=== PATIENT | male | born 1970 | race African-American/Black ===

== ENCOUNTER 2018-06-27 12:51 | Inpatient (IN) ==
[2018-06-27] MEDS ORDERED: Heparin 10,000 UNITS/10 ML Vial (for IV use) IV.PUSH STA (14:12)
[2018-06-27] MEDS ORDERED: Heparin Drip 25,000 UNIT/250 ML BAG IV.CONT PRN (14:12)
--- NOTE | 2018-06-27 14:15 | XR ---
EXAM DATE: 06/27/2018 1:58 PM EDT AGE/SEX: 48 years / Male INDICATIONS: . Chest pain and shortness of breath. CLINICAL DATA: This is the patient's initial encounter. Patient reports that signs and symptoms have been present for 3 days and indicates a pain score of 3/10. MEDICAL/SURGICAL HISTORY: Hypertension. None. COMPARISON: No prior exams available for comparison. FINDINGS: AP and lateral views of the chest demonstrate moderate cardiomegaly. No pulmonary vascular engorgemen t. Linear atelectasis versus scarring within the bases. Blunting of the costophrenic angles bilateral ly. No infiltrates. CONCLUSION: 1. Cardiomegaly. 2. Blunting of the costophrenic angles bilaterally either relating to tiny effusions or scarring. 3. Linear atelectasis versus scarring within the bases. Electronically signed by: Zen Beth MD 06/27/2018 2:13 PM EDT
[2018-06-27 14:38] LABS: Baso # (Auto) 0.1 th/mm3 (0.0-0.2); Baso % (Auto) 0.9 % (0.0-2.0); Eos % (Auto) 0.1 % (0.0-4.0); Hematocrit 29.4 % (39.0-51.0); Hemoglobin 9.7 gm/dL (13.0-17.0); Lymph # (Auto) 1.5 th/mm3 (1.0-4.8); Lymph % (Auto) 9.2 % (9.0-44.0); Mean Corpuscular HGB Conc 32.9 % (32.0-36.0); Mean Platelet Volume 9.8 fL (7.0-11.0); Mono # (Auto) 1.3 th/mm3 (0.0-0.9); Mono % (Auto) 7.8 % (0.0-8.0); Neut # (Auto) 13.6 th/mm3 (1.8-7.7); Platelet Count 217 th/mm3 (150-450); Red Blood Count 3.24 mil/mm3 (4.50-5.90); Red Cell Distribution Width 14.5 % (11.6-17.2); White Blood Count 16.6 th/mm3 (4.0-11.0)
[2018-06-27 14:51] LABS: Activated Partial Thrombo Time 33.4 sec (24.3-30.1); INR 1.1 Ratio
--- NOTE | 2018-06-27 14:52 | ED ---
HPI General Chief Complaint: Chest Pain Stated Complaint: Chest pain/SOB Time Seen by Provider: 06/27/18 13:57 Source: patient Mode of arrival: ambulatory Limitations: no limitations History of Present Illness HPI narrative: 48-year-old male patient with history of hypertension presents to the ER today for 3 days history of substernal chest pains which she states feels like a pressure, currently a 3 out of 10, with nausea and mild shortness of breath. He denies any vomiting, coughing, fevers, or any other symptoms. He does not know of any exacerbating alleviating factors. He has not had chest pains like this in the past. Complete Quality Measures for STEMI Alert Patients Related Data Home Medications Medication Instructions Recorded Confirmed amlodipine 10 mg PO HS 06/27/18 06/27/18 calcium acetate 667 mg PO TID 06/27/18 06/27/18 carvedilol 25 mg PO BID 06/27/18 06/27/18 doxazosin 2 mg PO DAILY 06/27/18 06/27/18 losartan 100 mg PO DAILY 06/27/18 06/27/18 torsemide 20 mg PO DAILY 06/27/18 06/27/18 Allergies Allergy/AdvReac Type Severity Reaction Status Date / Time No Known Allergies Allergy Unverified 06/27/18 13:24 Review of Systems Except as stated in HPI: all other systems reviewed are negative [facility] Social History Social History Substance History: No History of Abuse Second Hand Smoke Exposure: Yes Smoking Status: Current every day smoker Tobacco Type: Cigarettes How Often Do You Have a Drink Containing Alcohol: Never Recent Travel in [facility] within the Last 8 Weeks: No Recent Out of Country Travel within the Last 8 Weeks: No Immunization History Tetanus Immunization: <5 Years Hx Influenza Vaccine This Season: Yes Exam Narrative Exam Narrative: GENERAL: Well-developed middle-age -[place] male patient currently in mild distress. Awake and oriented 3. SKIN: Focused skin assessment warm/dry. HEAD: Atraumatic. Normocephalic. EYES: Pupils equal and round. No scleral icterus. No injection or drainage. ENT: No nasal bleeding or discharge. Mucous membranes pink and moist. NECK: Trachea midline. No JVD. Supple. CARDIOVASCULAR: Regular rate and rhythm. No murmur appreciated. Pulses are present and equal bilaterally. RESPIRATORY: No accessory muscle use. Clear to auscultation. Breath sounds equal bilaterally. GASTROINTESTINAL: Abdomen soft, non-tender, nondistended. Hepatic and splenic margins not palpable. MUSCULOSKELETAL: No obvious deformities. No clubbing. No cyanosis. No edema. NEUROLOGICAL: Awake and alert. No obvious cranial nerve deficits. Motor grossly within normal limits. Normal speech. PSYCHIATRIC: Appropriate mood and affect; insight and judgment normal. Course Initial Documented Vital Signs Temperature 99.5 F 06/27/18 13:22 Pulse Rate 79 06/27/18 13:22 Respiratory Rate 17 06/27/18 13:22 Blood Pressure 168/112 H 06/27/18 13:22 Pulse Oximetry 99 06/27/18 13:22 Last Documented Vital Signs Temperature 99.5 F 06/27/18 13:22 Pulse Rate 67 06/27/18 14:30 Respiratory Rate 18 06/27/18 14:30 Blood Pressure 186/124 H 06/27/18 14:30 Pulse Oximetry 99 06/27/18 14:30 Medical Decision Making MDM Narrative Medical decision making narrative: Due to the EKG abnormalities seen, case was discussed with Dr. Sierra when patient initially came into [facility] room 29, and he states that the EKG changes are equivocal, does not quite make STEMI criteria at this time. He has suggested further chest pain workup and will likely do further catheterization on the patient in the morning. He did suggest heparin at this time as well. However, when patient's lab work returns, his troponin is fairly elevated. He would not make a good Candidate at this point I do not think. However, Dr. Sierra's PA to see the patient in the ER, I have relayed the findings to her as well. Troponin is mildly elevated 0.11. At this point, this will need to be followed out, case has been discussed with Dr. Patel for admission. Differential Diagnosis Differential Diagnosis: ACS versus STEMI versus dysrhythmias versus costochondritis Lab Data Lab results reviewed: Yes I reviewed the patient's lab results. Result diagrams: 06/27/18 14:10 06/27/18 14:10 Lab Results 06/27/18 06/27/18 06/27/18 Range/Units 14:10 14:10 14:10 WBC 16.6 H (4.0-11.0) th/mm3 RBC 3.24 L (4.50-5.90) mil/mm3 Hgb 9.7 L (13.0-17.0) gm/dL Hct 29.4 L (39.0-51.0) % MCV 91.0 (80.0-100.0) fL MCH 30.0 (27.0-34.0) pg MCHC 32.9 (32.0-36.0) % RDW 14.5 (11.6-17.2) % Plt Count 217 (150-450) th/mm3 MPV 9.8 (7.0-11.0) fL Neut % (Auto) 82.0 H (16.0-70.0) % Lymph % (Auto) 9.2 (9.0-44.0) % [place] % (Auto) 7.8 (0.0-8.0) % Eos % (Auto) 0.1 (0.0-4.0) % Baso % (Auto) 0.9 (0.0-2.0) % Neut # (Auto) 13.6 H (1.8-7.7) th/mm3 Lymph # (Auto) 1.5 (1.0-4.8) th/mm3 [place] # (Auto) 1.3 H (0.0-0.9) th/mm3 Eos # (Auto) 0.0 (0.0-0.4) th/mm3 Baso # (Auto) 0.1 (0.0-0.2) th/mm3 WBC Differential . Differential Comment Auto diff final PT 11.0 (9.8-11.6) sec INR 1.1 Ratio APTT 33.4 H (24.3-30.1) sec Sodium 135 L (136-145) meq/L Potassium 4.7 (3.5-5.1) meq/L Chloride 105 (98-107) meq/L Carbon Dioxide 15.4 L (21.0-32.0) meq/L Anion Gap 15 (5-15) meq/L BUN 102 H (7-18) mg/dL Creatinine 17.56 H* (0.60-1.30) mg/dL Estimated GFR 4 L (>89) mL/min Random Glucose 109 H (74-106) mg/dL Calcium 7.1 L* (8.5-10.1) mg/dL Prot Corrected Calcium 7.4 L* (8.5-10.1) mg/dL Troponin I 0.11 H (0.02-0.05) ng/mL Total Protein 6.6 (6.4-8.2) g/dL Imaging Data Attestation: I personally reviewed and interpreted this imaging study as follows : Radiologist's impression: Chest X-Ray 06/27/18 00:00 CONCLUSION: 1. Cardiomegaly. 2. Blunting of the costophrenic angles bilaterally either relating to tiny effusions or scarring. 3. Linear atelectasis versus scarring within the bases. ECG Data Attestation: I personally reviewed and interpreted this ECG as follows: Interpretation: EKG shows normal sinus rhythm at a rate of 76 bpm. There is a nonspecific ST abnormality, subcentimeter questionable elevation in the inferior leads with T-wave inversions in 1, aVL, and V5 and V6. Discharge Plan Discharge Disposition Patient Disposition: 30 Still Patient Discharge Condition Condition: Fair Discharge Details Anticipated Discharge Date: 06/27/18 Diagnosis: Atypical chest pain, Acute renal failure (ARF), Elevated troponin Physicians Team ED Provider: James Mcgregor Primary Care Provider: Primary Care PramodiSultana Rxs /Orders / Referrals /Forms Prescriptions: No Action carvedilol 25 mg Tablet 25 mg PO BID RF: 0 torsemide 20 mg Tablet 20 mg PO DAILY RF: 0 amlodipine 10 mg Tablet 10 mg PO HS RF: 0 losartan 100 mg Tablet 100 mg PO DAILY RF: 0 doxazosin 2 mg Tablet 2 mg PO DAILY RF: 0 calcium acetate 667 mg Capsule 667 mg PO TID RF: 0 Discharge Instructions Patient Printed Instructions: Chest Pain (ED) Status ED Status: With Doctor
[2018-06-27 15:08] LABS: Calcium 7.1 mg/dL (8.5-10.1); Carbon Dioxide 15.4 meq/L (21.0-32.0); Potassium 4.7 meq/L (3.5-5.1); Troponin I 0.11 ng/mL (0.02-0.05)
[2018-06-27 15:36] LABS: Total Protein 6.6 g/dL (6.4-8.2)
--- NOTE | 2018-06-27 15:44 | P.CONCA ---
<Pattie Muñoz - Last Filed: 06/27/18 15:47> History of Present Illness Service: cardiology Consult date: 06/27/18 Reason for Consult: chest pain Primary Care Provider: No Primary Care Physician Chief Complaint: chest pain History of Present Illness: 48 yo AAM with no prior cardiac history and CKD followed by cyber systems operations specialist in [place] who recently relocated to [place] presents with 2 days of chest pain. Patient states 2 days ago he awoke with "6/10" substernal chest pain made worse with deep breaths and laying supine. His was en route from [place] and he wanted to wait until she came home before going to the ED. Today he presents with "3/10" pain, he admits to mild nausea yesterday. No sob or palpitations. Troponin x 1 is 0.1, creatinine is 17. Review of Systems All other systems reviewed negative except as stated in HPI PMFSH - History History Provided By: Patient - Tobacco History Second Hand Smoke Exposure: Yes Tobacco Use In Past 30 Days: Yes Smoking Status: Current every day smoker Tobacco Type: Cigarettes - Alcohol History How Often Do You Have a Drink Containing Alcohol: Never - Substance Use History Substance History: No History of Abuse - Travel History Recent Travel in the [place] Within the Last 8 Weeks: No Recent Travel Out of the Country Within the Last 8 Weeks: No - Immunization History Tetanus Immunization: <5 Years Hx Influenza Vaccine This Season: Yes Medications and Allergies Allergies Allergy/AdvReac Type Severity Reaction Status Date / Time No Known Allergies Allergy Unverified 06/27/18 13:24 Home Medications Medication Instructions Recorded Confirmed Type amlodipine 10 mg PO HS 06/27/18 06/27/18 History calcium acetate 667 mg PO TID 06/27/18 06/27/18 History carvedilol 25 mg PO BID 06/27/18 06/27/18 History doxazosin 2 mg PO DAILY 06/27/18 06/27/18 History losartan 100 mg PO DAILY 06/27/18 06/27/18 History torsemide 20 mg PO DAILY 06/27/18 06/27/18 History Active Medications: Active Medications Heparin Sodium/Dextrose (Heparin/D5w 25,000 U/250 Ml) 25,000 unit in 250 mls @ 0 mls/hr IV.CONT TITRATE PRN; Protocol PRN Reason: Per Protocol Last Admin: 06/27/18 15:12 Dose: 900 units/hr, 9 mls/hr Sodium Chloride (Ns Flush) 2 ml IV.FLUSH UNSCH PRN PRN Reason: FLUSH AFTER USING IV ACCESS Last Admin: 06/27/18 15:13 Dose: 2 ml Exam Vital signs: Vital Signs 06/27/18 13:22 06/27/18 14:30 Temperature 99.5 F Pulse Rate 79 67 Respiratory Rate 17 18 Blood Pressure 168/112 H 186/124 H Pulse Oximetry 99 99 Intake & Output 06/26/18 06/27/18 06/27/18 18:59 06:59 18:59 Weight 72.575 kg Narrative: GENERAL: SKIN: Warm and dry. HEAD: Normocephalic. EYES: No scleral icterus. No injection or drainage. NECK: Supple, trachea midline. No JVD or lymphadenopathy. CARDIOVASCULAR: Regular rate and rhythm without murmurs, gallops, or rubs. RESPIRATORY: Breath sounds equal bilaterally. No accessory muscle use. GASTROINTESTINAL: Abdomen soft, non-tender, nondistended. MUSCULOSKELETAL: No cyanosis, or edema. Results 06/27/18 14:10 06/27/18 14:10 Cardiac Enzymes 06/27/18 Range/Units 14:10 Troponin I 0.11 H (0.02-0.05) ng/mL Coagulation 06/27/18 Range/Units 14:10 PT 11.0 (9.8-11.6) sec APTT 33.4 H (24.3-30.1) sec CBC 06/27/18 Range/Units 14:10 WBC 16.6 H (4.0-11.0) th/mm3 RBC 3.24 L (4.50-5.90) mil/mm3 Hgb 9.7 L (13.0-17.0) gm/dL Hct 29.4 L (39.0-51.0) % Plt Count 217 (150-450) th/mm3 Neut # (Auto) 13.6 H (1.8-7.7) th/mm3 Lymph # (Auto) 1.5 (1.0-4.8) th/mm3 [place] # (Auto) 1.3 H (0.0-0.9) th/mm3 Eos # (Auto) 0.0 (0.0-0.4) th/mm3 Baso # (Auto) 0.1 (0.0-0.2) th/mm3 Comprehensive Metabolic Panel 06/27/18 Range/Units 14:10 Sodium 135 L (136-145) meq/L Potassium 4.7 (3.5-5.1) meq/L Chloride 105 (98-107) meq/L Carbon Dioxide 15.4 L (21.0-32.0) meq/L BUN 102 H (7-18) mg/dL Creatinine 17.56 H* (0.60-1.30) mg/dL Calcium 7.1 L* (8.5-10.1) mg/dL Intake and Output 06/27/18 06/27/18 06/27/18 06:59 14:59 22:59 Other: Weight 72.575 kg Patient Weight 06/28/18 06:59 Weight 72.575 kg Assessment and Plan - Plan 48 yo AAM with no prior cardiac history and CKD who recently relocated to [place] presents with 2 days of chest pain. Patient states 2 days ago he awoke with "6/10" substernal chest pain made worse with deep breaths and laying supine. His was en route from [place] and he wanted to wait until she came home before going to the ED. Today he presents with "3/10" pain, he admits to mild nausea yesterday. No sob or palpitations. NSTEMI- troponin x 1 is 0.1, continue to monitor trend EKG shows possible baseline ST elevation? chest pain "3/10", improving acute on chronic kidney disease- creatinine 17 follows with nephrology in [place]. <Caleb Sierra - Last Filed: 06/27/18 16:46> History of Present Illness Primary Care Provider: No Primary Care Physician Medications and Allergies Active Medications: Active Medications Acetaminophen (Tylenol) 650 mg PO Q4H PRN PRN Reason: Temp > 100.4 Al Hydroxide/Mg Hydroxide (Milk Of Magnesia Liq) 30 ml PO Q12H PRN PRN Reason: Mild Constipation Amlodipine Besylate (Norvasc) 10 mg PO HS GLO Aspirin (Aspirin) 325 mg PO DAILY GLO Bisacodyl (Dulcolax Supp) 10 mg RECTAL DAILY PRN PRN Reason: SEVERE CONSITIPATION Calcium Acetate (Phoslo) 667 mg PO TID GLO Clonidine HCl (Catapres) 0.1 mg PO Q6H PRN PRN Reason: HYPERTENSION Doxazosin Mesylate (Cardura) 2 mg PO DAILY [facility] Hydralazine HCl (Apresoline) 50 mg PO TID [facility] Heparin Sodium/Dextrose (Heparin/D5w 25,000 U/250 Ml) 25,000 unit in 250 mls @ 0 mls/hr IV.CONT TITRATE PRN; Protocol PRN Reason: Per Protocol Last Admin: 06/27/18 15:12 Dose: 900 units/hr, 9 mls/hr Sodium Chloride (Ns Inj) 1,000 mls @ 100 mls/hr IV.CONT .Q10H [facility] Lactulose (Lactulose Liq) 30 ml PO DAILY PRN PRN Reason: SEVERE CONSITIPATION Morphine Sulfate (Morphine Inj) 4 mg IV.PUSH Q3H PRN PRN Reason: PAIN 6-10;IF UNABLE TO TAKE PO Morphine Sulfate (Morphine Inj) 4 mg IV.PUSH Q3H PRN PRN Reason: BREAKTHROUGH PAIN Morphine Sulfate (Morphine Inj) 2 mg IV.PUSH Q3H PRN PRN Reason: PAIN 3-5; IF UABLE TO TAKE PO Naloxone HCl (Narcan Inj) 0.4 mg IV.PUSH UNSCH PRN PRN Reason: SEE LABEL COMMENTS Nitroglycerin (Nitro-Bid 2% Oint) 1 inch TOPICAL Q6HR [facility] Nitroglycerin (Nitrostat Sl) 0.4 mg SL Q5M PRN PRN Reason: CHEST PAIN Non-Formulary Medication (Carvedilol [Carvedilol]) 25 mg PO BID [facility] Ondansetron HCl (Zofran Inj) 4 mg IV.PUSH Q6H PRN PRN Reason: NAUSEA OR VOMITING Oxycodone/Acetaminophen (Percocet 10/325 Mg) 1 tab PO Q6H PRN PRN Reason: PAIN SCALE 6 TO 10 Oxycodone/Acetaminophen (Percocet 5/325 Mg) 1 tab PO Q6H PRN PRN Reason: PAIN SCALE 3 TO 5 Senna/Docusate Sodium (Bernie-Colace) 1 tab PO BID [facility] Sennosides (Senokot) 17.2 mg PO Q12H PRN PRN Reason: Moderate Constipation Sodium Chloride (Ns Flush) 2 ml IV.FLUSH UNSCH PRN PRN Reason: FLUSH AFTER USING IV ACCESS Last Admin: 06/27/18 15:13 Dose: 2 ml Temazepam (Restoril) 15 mg PO HS PRN PRN Reason: INSOMNIA Exam Vital signs: Vital Signs 06/27/18 13:22 06/27/18 14:30 Temperature 99.5 F Pulse Rate 79 67 Respiratory Rate 17 18 Blood Pressure 168/112 H 186/124 H Pulse Oximetry 99 99 Intake & Output 06/26/18 06/27/18 06/27/18 18:59 06:59 18:59 Weight 72.575 kg Results 06/27/18 14:10 06/27/18 14:10 Cardiac Enzymes 06/27/18 Range/Units 14:10 Troponin I 0.11 H (0.02-0.05) ng/mL Coagulation 06/27/18 Range/Units 14:10 PT 11.0 (9.8-11.6) sec APTT 33.4 H (24.3-30.1) sec CBC 06/27/18 Range/Units 14:10 WBC 16.6 H (4.0-11.0) th/mm3 RBC 3.24 L (4.50-5.90) mil/mm3 Hgb 9.7 L (13.0-17.0) gm/dL Hct 29.4 L (39.0-51.0) % Plt Count 217 (150-450) th/mm3 Neut # (Auto) 13.6 H (1.8-7.7) th/mm3 Lymph # (Auto) 1.5 (1.0-4.8) th/mm3 [place] # (Auto) 1.3 H (0.0-0.9) th/mm3 Eos # (Auto) 0.0 (0.0-0.4) th/mm3 Baso # (Auto) 0.1 (0.0-0.2) th/mm3 Comprehensive Metabolic Panel 06/27/18 Range/Units 14:10 Sodium 135 L (136-145) meq/L Potassium 4.7 (3.5-5.1) meq/L Chloride 105 (98-107) meq/L Carbon Dioxide 15.4 L (21.0-32.0) meq/L BUN 102 H (7-18) mg/dL Creatinine 17.56 H* (0.60-1.30) mg/dL Calcium 7.1 L* (8.5-10.1) mg/dL Total Protein 6.6 (6.4-8.2) g/dL Intake and Output 06/27/18 06/27/18 06/27/18 06:59 14:59 22:59 Other: Weight 72.575 kg Patient Weight 06/28/18 06:59 Weight 72.575 kg Assessment and Plan - Attending Attestation suggestive symptoms small troponin elevation no active CP nonspecific ST/T abn on EKG ARF on CRI. No plans for LHC right now. need nephrology input as to outlook for kidney function. If dialysis, then LHC. otherwise, probable medical mgt only
[2018-06-27] MEDS ORDERED: Acetaminophen 325 MG Tablet PO PRN (16:07)
[2018-06-27] MEDS ORDERED: Bisacodyl 10 MG Supp RECTAL PRN (16:07)
[2018-06-27] MEDS ORDERED: Temazepam 15 MG Capsule PO PRN (16:07)
[2018-06-27] MEDS ORDERED: Naloxone Inj 0.4 MG/ML Vial IV.PUSH PRN (16:15)
[2018-06-27] MEDS ORDERED: oxyCODONE/Acetaminophen 10/325 Tablet PO PRN (16:15)
[2018-06-27] MEDS ORDERED: Morphine Inj 4 MG/ML Vial IV.PUSH PRN ×3 (16:15)
[2018-06-27] MEDS ORDERED: Sod Chloride 0.9% Inj 1,000 ML IV.CONT SCH (17:00)
--- NOTE | 2018-06-27 17:01 | P.CONNP ---
<Belia Ruff - Last Filed: 06/27/18 17:02> History of Present Illness Service: Nephrology Consult date: 06/27/18 Reason for Consult: Acute on CKD Primary Care Provider: No Primary Care Physician Chief Complaint: chest pain History of Present Illness: This is a 48 y/o AAM patient who is from [place] who presents with chest pain that began Wednesday morning. He reports he sees a antique furniture repairer back home and has CKD 4. At one time he was on cyclosporine, that was stopped 2 months ago because his renal function was no longer improving. On arrival he is in acute on CKD. His creatinine is 17.56, with BUN of 102, and CO2 15. He has a PMH that includes HTN, and his BP is high in the ER. On exam he is not in distress, has some edema to lower extremities. Dr. Valdivia began to discuss the possibility of dialysis and he threatened to leave AMA. We are attempting to contact his antique furniture repairer in [place] to obtain more information. The patient is a full code this admission. Review of Systems Cardiovascular: Reports chest pain, Denies fast heart rate, Denies irregular heart rhythm Gastrointestinal: Denies abdominal pain Genitourinary: Denies blood in urine, Denies decreased urination, Denies difficulty urinating Musculoskeletal: Denies abnormal walking Allergic/Immunologic: Denies GI upset with certain foods PMFSH - History History Provided By: Patient - Medical History Medical History: Medical History (Last Updated 06/27/18 @ 16:55 by Belia Ruff [facility]) CKD (chronic kidney disease) stage 4, GFR 15-29 ml/min HTN (hypertension) - Tobacco History Second Hand Smoke Exposure: Yes Tobacco Use In Past 30 Days: Yes Smoking Status: Current every day smoker Tobacco Type: Cigarettes - Alcohol History How Often Do You Have a Drink Containing Alcohol: Never - Substance Use History Substance History: No History of Abuse - Travel History Recent Travel in the [place] Within the Last 8 Weeks: No Recent Travel Out of the Country Within the Last 8 Weeks: No - Immunization History Tetanus Immunization: <5 Years Hx Influenza Vaccine This Season: Yes Medications and Allergies Allergies Allergy/AdvReac Type Severity Reaction Status Date / Time No Known Allergies Allergy Unverified 06/27/18 13:24 Home Medications Medication Instructions Recorded Confirmed Type amlodipine 10 mg PO HS 06/27/18 06/27/18 History calcium acetate 667 mg PO TID 06/27/18 06/27/18 History carvedilol 25 mg PO BID 06/27/18 06/27/18 History doxazosin 2 mg PO DAILY 06/27/18 06/27/18 History losartan 100 mg PO DAILY 06/27/18 06/27/18 History torsemide 20 mg PO DAILY 06/27/18 06/27/18 History Active Medications: Active Medications Acetaminophen (Tylenol) 650 mg PO Q4H PRN PRN Reason: Temp > 100.4 Al Hydroxide/Mg Hydroxide (Milk Of Magnesia Liq) 30 ml PO Q12H PRN PRN Reason: Mild Constipation Amlodipine Besylate (Norvasc) 10 mg PO HS GLO Aspirin (Aspirin) 325 mg PO DAILY GLO Bisacodyl (Dulcolax Supp) 10 mg RECTAL DAILY PRN PRN Reason: SEVERE CONSITIPATION Calcium Acetate (Phoslo) 667 mg PO TID GLO Clonidine HCl (Catapres) 0.1 mg PO Q6H PRN PRN Reason: HYPERTENSION Doxazosin Mesylate (Cardura) 2 mg PO DAILY GLO Hydralazine HCl (Apresoline) 50 mg PO TID [facility] Heparin Sodium/Dextrose (Heparin/D5w 25,000 U/250 Ml) 25,000 unit in 250 mls @ 0 mls/hr IV.CONT TITRATE PRN; Protocol PRN Reason: Per Protocol Last Admin: 06/27/18 15:12 Dose: 900 units/hr, 9 mls/hr Sodium Chloride (Ns Inj) 1,000 mls @ 100 mls/hr IV.CONT .Q10H GLO Lactulose (Lactulose Liq) 30 ml PO DAILY PRN PRN Reason: SEVERE CONSITIPATION Morphine Sulfate (Morphine Inj) 4 mg IV.PUSH Q3H PRN PRN Reason: PAIN 6-10;IF UNABLE TO TAKE PO Morphine Sulfate (Morphine Inj) 4 mg IV.PUSH Q3H PRN PRN Reason: BREAKTHROUGH PAIN Morphine Sulfate (Morphine Inj) 2 mg IV.PUSH Q3H PRN PRN Reason: PAIN 3-5; IF UABLE TO TAKE PO Naloxone HCl (Narcan Inj) 0.4 mg IV.PUSH UNSCH PRN PRN Reason: SEE LABEL COMMENTS Nitroglycerin (Nitro-Bid 2% Oint) 1 inch TOPICAL Q6HR GLO Nitroglycerin (Nitrostat Sl) 0.4 mg SL Q5M PRN PRN Reason: CHEST PAIN Non-Formulary Medication (Carvedilol [Carvedilol]) 25 mg PO BID GLO Ondansetron HCl (Zofran Inj) 4 mg IV.PUSH Q6H PRN PRN Reason: NAUSEA OR VOMITING Oxycodone/Acetaminophen (Percocet 10/325 Mg) 1 tab PO Q6H PRN PRN Reason: PAIN SCALE 6 TO 10 Oxycodone/Acetaminophen (Percocet 5/325 Mg) 1 tab PO Q6H PRN PRN Reason: PAIN SCALE 3 TO 5 Senna/Docusate Sodium (Bernie-Colace) 1 tab PO BID [facility] Sennosides (Senokot) 17.2 mg PO Q12H PRN PRN Reason: Moderate Constipation Sodium Chloride (Ns Flush) 2 ml IV.FLUSH UNSCH PRN PRN Reason: FLUSH AFTER USING IV ACCESS Last Admin: 06/27/18 15:13 Dose: 2 ml Temazepam (Restoril) 15 mg PO HS PRN PRN Reason: INSOMNIA Exam Vital signs: Vital Signs 06/27/18 13:22 06/27/18 14:30 Temperature 99.5 F Pulse Rate 79 67 Respiratory Rate 17 18 Blood Pressure 168/112 H 186/124 H Pulse Oximetry 99 99 Intake & Output 06/26/18 06/27/18 06/27/18 18:59 06:59 18:59 Weight 72.575 kg - Constitutional no acute distress, average body habitus - Routine HEENT Exam Head: Present: normocephalic - Routine Neck Exam Present: supple, full ROM - Routine Respiratory Exam Present: CTA bilaterally. Absent: accessory muscle use - Routine Cardiovascular Exam Present: RRR, S1, S2. Absent: murmur - Routine Abdominal Exam Present: soft, normoactive bowel sounds - Routine Extremities Exam Present: edema, full ROM, pulses intact - Routine Skin Exam Present: intact, dry, warm - Routine Neurological Exam Present: alert, oriented X3, CN II-XII intact Results - Lab Results 06/27/18 14:10 06/27/18 14:10 Most recent lab results Calcium 7.1 mg/dL (8.5-10.1) L* 06/27/18 14:10 - Image Kidney/bladder ultrasound: pending Assessment and Plan - Assessment (1) Acute renal failure superimposed on stage 4 chronic kidney disease Code(s): N17.9 - Acute kidney failure, unspecified; N18.4 - Chronic kidney disease, stage 4 (severe) Status: Acute Plan: It is unclear what his baseline is. We are attempting to contact his antique furniture repairer in [place]. [place]ANNON most likely due to NSTEMI adn decreased renal perfusion. He is uremic, has fluid overload and metabolic acidosis. He needs to begin dialysis. The patient, however, is refusing, stating "I would rather go back and start in [place]". We discussed the risks involved in leaving AMA and driving all the way back to [place] that include life threatening electrolytes disorders and/or . We have consulted IR for PermCath placement in AM if he agrees. Start Bumex 2 mg BID, hold home torsemide. Monitor urine output, repeat labs. Avoid IVF administration, avoid nephrotoxins, gadolinium is contraindicated. PO fluids encouraged. Resume calcium acetate with meals. (2) Chest pain Code(s): R07.9 - Chest pain, unspecified Status: Acute Plan: Mild elevation in troponin, he has been evaluated by cardiology. Heparin gtt infusing. Due to renal dysfunction, no plans for heart cath at this time. If he agrees to dialysis it will be considered. Medical management for now. (3) Anemia in CKD (chronic kidney disease) Code(s): N18.9 - Chronic kidney disease, unspecified; D63.1 - Anemia in chronic kidney disease Status: Acute Plan: Most likely has anemia of CKD. Would benefit from Epogen. Due to elevated BP, hold for now. Check iron profile in AM. (4) HTN (hypertension) Code(s): I10 - Essential (primary) hypertension Status: Acute Plan: Home medications were resumed. Monitor and titrate as needed. Avoid IVF administration. - Plan The patient was seen and examined together by Dr. Valdivia and myself. We discussed the plan of care for this patient at the bedside. <Jcarlos Valdivia - Last Filed: 06/28/18 11:36> History of Present Illness Primary Care Provider: No Primary Care Physician [facility] - Medical History Medical History: Medical History (Last Updated 06/27/18 @ 16:55 by Belia Ruff [facility]) CKD (chronic kidney disease) stage 4, GFR 15-29 ml/min HTN (hypertension) Exam Vital signs: Vital Signs 06/27/18 13:22 06/27/18 14:30 06/27/18 17:59 Temperature 99.5 F Pulse Rate 79 67 Respiratory Rate 17 18 18 Blood Pressure 168/112 H 186/124 H 178/127 H Pulse Oximetry 99 99 100 Intake & Output 06/27/18 06/28/18 06/28/18 18:59 06:59 18:59 Weight 72.575 kg Results - Lab Results 06/27/18 14:10 06/27/18 14:10 Most recent lab results Calcium 7.1 mg/dL (8.5-10.1) L* 06/27/18 14:10 Assessment and Plan - Assessment (1) Acute renal failure superimposed on stage 4 chronic kidney disease Code(s): N17.9 - Acute kidney failure, unspecified; N18.4 - Chronic kidney disease, stage 4 (severe) Status: Chronic (2) Chest pain Code(s): R07.9 - Chest pain, unspecified Status: Acute (3) Anemia in CKD (chronic kidney disease) Code(s): N18.9 - Chronic kidney disease, unspecified; D63.1 - Anemia in chronic kidney disease Status: Chronic (4) HTN (hypertension) Code(s): I10 - Essential (primary) hypertension Status: Acute - Attending Attestation patient was seen and examined. Discussed with his antique furniture repairer in [place]. He was diagnosed with membranous nephropathy, for which he was placed on Chlorambucil and prednisone (Ponticelli regimen), he was non compliant, later placed on Cyclosporine, but he did not take it regularly. Patient developed progressive renal dysfunction, dialysis had been recommended, but he refused. patient needed dialysis, we discussed potential life threatening complications of kidney failure, but he did not want to initiate dialysis. He later signed AMA and left the hospital.
[2018-06-27] MEDS ORDERED: Calcium Acetate 667 MG Capsule PO SCH (18:00)
[2018-06-27] MEDS ORDERED: hydrALAZINE 50 MG Tablet PO SCH (18:00)
--- NOTE | 2018-06-27 18:01 | P.AMA ---
AMA Note - AMA Note Recommended Treatment Course: go to [place] SOON POSSIBLE AND FOLLOW UP WITH YOUR APPRENTICE ARCHITECT FOR DIALYSIS AMA Statement: Patient Thiago Lynn has decided to leave the hospital against medical advice. This patient has the capacity to refuse care and understands the risks of leaving, including permanent disability and/or , and has had an opportunity to ask questions about his/her condition. The patient has been informed that he/she may return for care at any time, and follow up has been arranged/advised. - AMA Note Discharge Disposition: Left Against Medical Advice Patient Condition on Discharge: Critical
--- NOTE | 2018-06-27 18:06 | P.DS ---
Date of admission: 06/27/18 16:10 Primary care physician: No Primary Care Physician Attending physician on discharge: Ernesto Patel Anticipated date of discharge: 06/27/18 Brief History from admission: Patient came to the hospital was noted to have chest pain is also noted to be in acute renal failure that is chronic for him with a creatinine of 17+. Patient has previously in [place] been told that he needs dialysis has been refusing it for the past 6 months at least if not longer. Patient was seen by cardiology. Has now refused to stay and wishes to leave AGAINST MEDICAL ADVICE therefore will be signing the paperwork which he has done and will leave AGAINST MEDICAL ADVICE. He signed the AMA paperwork. DS: Diagnosis - Discharge Diagnosis (1) Acute renal failure (ARF) Status: Chronic (2) Acute renal failure superimposed on stage 4 chronic kidney disease Status: Chronic (3) Anemia in CKD (chronic kidney disease) Status: Chronic (4) Atypical chest pain Status: Acute (5) Chest pain Status: Acute (6) Elevated troponin Status: Acute DS: Summary Hospital Course: LEFT AMA FOLLOW UP WITH PHYSICIAN THADDEUS Patient came to the hospital was noted to have chest pain is also noted to be in acute renal failure that is chronic for him with a creatinine of 17+. Patient has previously in [place] been told that he needs dialysis has been refusing it for the past 6 months at least if not longer. Patient was seen by cardiology. Has now refused to stay and wishes to leave AGAINST MEDICAL ADVICE therefore will be signing the paperwork which he has done and will leave AGAINST MEDICAL ADVICE. He signed the AMA paperwork. - Time Spent with Patient Total time spent providing and/or coordinating discharge services: Less than 30 minutes Exam Vital signs: Vital Signs 06/27/18 13:22 06/27/18 14:30 06/27/18 17:59 Temperature 99.5 F Pulse Rate 79 67 Respiratory Rate 17 18 18 Blood Pressure 168/112 H 186/124 H 178/127 H Pulse Oximetry 99 99 100 Intake & Output 06/26/18 06/27/18 06/27/18 18:59 06:59 18:59 Weight 72.575 kg Narrative: Patient left AMA exam stopped Results Procedures completed during hospitalization: None Completed studies during hospitalization: Laboratory Results WBC 16.6 th/mm3 (4.0-11.0) H 06/27/18 14:10 RBC 3.24 mil/mm3 (4.50-5.90) L 06/27/18 14:10 Hgb 9.7 gm/dL (13.0-17.0) L 06/27/18 14:10 Hct 29.4 % (39.0-51.0) L 06/27/18 14:10 MCV 91.0 fL (80.0-100.0) 06/27/18 14:10 MCH 30.0 pg (27.0-34.0) 06/27/18 14:10 MCHC 32.9 % (32.0-36.0) 06/27/18 14:10 RDW 14.5 % (11.6-17.2) 06/27/18 14:10 Plt Count 217 th/mm3 (150-450) 06/27/18 14:10 MPV 9.8 fL (7.0-11.0) 06/27/18 14:10 Neut % (Auto) 82.0 % (16.0-70.0) H 06/27/18 14:10 Lymph % (Auto) 9.2 % (9.0-44.0) 06/27/18 14:10 Gosper % (Auto) 7.8 % (0.0-8.0) 06/27/18 14:10 Eos % (Auto) 0.1 % (0.0-4.0) 06/27/18 14:10 Baso % (Auto) 0.9 % (0.0-2.0) 06/27/18 14:10 Neut # (Auto) 13.6 th/mm3 (1.8-7.7) H 06/27/18 14:10 Lymph # (Auto) 1.5 th/mm3 (1.0-4.8) 06/27/18 14:10 Gosper # (Auto) 1.3 th/mm3 (0.0-0.9) H 06/27/18 14:10 Eos # (Auto) 0.0 th/mm3 (0.0-0.4) 06/27/18 14:10 Baso # (Auto) 0.1 th/mm3 (0.0-0.2) 06/27/18 14:10 WBC Differential . 06/27/18 14:10 Differential Comment Auto diff final 06/27/18 14:10 PT 11.0 sec (9.8-11.6) 06/27/18 14:10 INR 1.1 Ratio 06/27/18 14:10 APTT 33.4 sec (24.3-30.1) H 06/27/18 14:10 Sodium 135 meq/L (136-145) L 06/27/18 14:10 Potassium 4.7 meq/L (3.5-5.1) 06/27/18 14:10 Chloride 105 meq/L (98-107) 06/27/18 14:10 Carbon Dioxide 15.4 meq/L (21.0-32.0) L 06/27/18 14:10 Anion Gap 15 meq/L (5-15) 06/27/18 14:10 BUN 102 mg/dL (7-18) H 06/27/18 14:10 Creatinine 17.56 mg/dL (0.60-1.30) H* 06/27/18 14:10 Estimated GFR 4 mL/min (>89) L 06/27/18 14:10 Random Glucose 109 mg/dL (74-106) H 06/27/18 14:10 Calcium 7.1 mg/dL (8.5-10.1) L* 06/27/18 14:10 Prot Corrected Calcium 7.4 mg/dL (8.5-10.1) L* 06/27/18 14:10 Troponin I 0.11 ng/mL (0.02-0.05) H 06/27/18 14:10 Total Protein 6.6 g/dL (6.4-8.2) 06/27/18 14:10 Impressions Chest X-Ray 06/27/18 00:00 CONCLUSION: 1. Cardiomegaly. 2. Blunting of the costophrenic angles bilaterally either relating to tiny effusions or scarring. 3. Linear atelectasis versus scarring within the bases. Labs on day of discharge: Labs from last 24 hours 06/27/18 06/27/18 06/27/18 14:10 14:10 14:10 WBC 16.6 H RBC 3.24 L Hgb 9.7 L Hct 29.4 L MCV 91.0 MCH 30.0 MCHC 32.9 RDW 14.5 Plt Count 217 MPV 9.8 Neut % (Auto) 82.0 H Lymph % (Auto) 9.2 Gosper % (Auto) 7.8 Eos % (Auto) 0.1 Baso % (Auto) 0.9 Neut # (Auto) 13.6 H Lymph # (Auto) 1.5 Gosper # (Auto) 1.3 H Eos # (Auto) 0.0 Baso # (Auto) 0.1 WBC Differential . Differential Comment Auto diff final PT 11.0 INR 1.1 APTT 33.4 H Sodium 135 L Potassium 4.7 Chloride 105 Carbon Dioxide 15.4 L Anion Gap 15 BUN 102 H Creatinine 17.56 H* Estimated GFR 4 L Random Glucose 109 H Calcium 7.1 L* Prot Corrected Calcium 7.4 L* Troponin I 0.11 H Total Protein 6.6 - Impressions ITS Impressions Chest X-Ray 06/27/18 00:00 CONCLUSION: 1. Cardiomegaly. 2. Blunting of the costophrenic angles bilaterally either relating to tiny effusions or scarring. 3. Linear atelectasis versus scarring within the bases. Discharge Plan - Discharge Disposition Patient Disposition: Left Against Medical Advice - Discharge Condition Condition: Critical - Discharge Order Discharge Orders: AMA Discharge (Routine); Ordered 06/27/18 Ordered By: Ernesto Patel Discharge Order (Routine); Ordered 06/27/18 Ordered By: Ernesto Patel - Discharge Details Anticipated Discharge Date: 06/27/18 Discharge Comment: Patient left AMA recommend that he go follow-up with his primary care physician and primary utilities estimator and drafter in [place] - Physicians Team Primary Care Provider: Primary Care Pramodi,Sultana Attending Provider: Ernesto Patel - Rxs /Orders / Referrals /Forms Prescriptions: New aspirin 325 mg Tablet 325 mg PO DAILY RF: 0 hydralazine 50 mg Tablet 50 mg PO TID RF: 0 Continue amlodipine 10 mg Tablet 10 mg PO HS calcium acetate 667 mg Capsule 667 mg PO TID carvedilol 25 mg Tablet 25 mg PO BID doxazosin 2 mg Tablet 2 mg PO DAILY Discontinued losartan 100 mg Tablet 100 mg PO DAILY torsemide 20 mg Tablet 20 mg PO DAILY - Discharge Instructions Patient Printed Instructions: Chest Pain (ED)
[2018-06-27] MEDS ORDERED: Senna/Docusate Sodium 8.6/50 MG Tablet PO SCH (21:00)
[2018-06-27] MEDS ORDERED: Carvedilol 12.5 MG Tablet PO SCH (21:00)
[2018-06-27] MEDS ORDERED: amLODIPine 10 MG Tablet PO SCH (21:00)
[2018-06-28] MEDS ORDERED: Aspirin 325 MG Tablet PO SCH (16:14)
--- NOTE | 2018-06-28 23:37 | ECG ---
Date Performed: 06/27/2018 Time Performed: 13:37:01 PTAGE: 48 years EKG: Sinus rhythm POSSIBLE LEFT ATRIAL ENLARGEMENT BORDERLINE LEFT AXIS DEVIATION LEFT VENTRICULAR HYPERTROPHY WITH SE CONDARY ST/T WAVE CHANGES VS ISCHEMIA ABNORMAL ECG NO PREVIOUS TRACING DOCTOR: Da Lala Interpretating Date/Time 06/28/2018 23:36:49
== END 2018-06-27 18:03 | disposition left against medical advice (07) ==
LOC: EDBD → NEPC 12:51 → NEDA 16:10
PROVIDERS: ADMIT Hospitalist; ATTEND Hospitalist